=== PATIENT | female | born 1995 ===

== ENCOUNTER 2022-04-19 14:00 | Inpatient (IN) | payer OTHER ==
[~2022-04-19] VITALS: Ht 167.6 cm; Wt 81.2 kg
[2022-04-20] MEDS ORDERED: PRENATAL TABLE1 EAC3 PO (16:30)
== END 2022-04-22 13:55 | disposition home or self-care (01) | DRG 805 ==
LOC: EDSTATUS 14:00 → LDR 04-20 16:01 → OB/GYN 04-20 18:50
PROVIDERS: ADMIT Specialist; ATTEND Specialist
PROC: 10E0XZZ Delivery of Products of Conception, External Approach (ICD-10-PCS; principal; 2022-04-20)
PROC: 4A1HXCZ Monitoring of Products of Conception, Cardiac Rate, External Approach (ICD-10-PCS; 2022-04-20)
DX: O98.513 Other viral diseases complicating pregnancy, third trimester (principal); U07.1 COVID-19; Z37.0 Single live birth; O99.820 Streptococcus B carrier state complicating pregnancy; Z3A.38 38 weeks gestation of pregnancy